=== PATIENT | female | born 1990 | race Caucasian/White ===

== ENCOUNTER 2021-03-16 17:57 | Inpatient (IN) | payer MEDICAID, SELFPAY ==
[2021-03-16] VITALS (38 sets, daily range): BP systolic 104–138; BP diastolic 66–81; PULSE 57–90; RESP 15–16; TEMP 36.8; O2SAT 91–100; BMI 23.0
--- NOTE | 2021-03-16 16:26 | US_ITS ---
WS: [id number] ULTRASOUND OB COMPLETE TECHNIQUE: Complete ultrasound. CLINICAL INFORMATION: abdominal pain COMPARISON: None. FINDINGS: Fetus is identified with breech presentation partially extending into cervix. Thinning of the cervix with dilation. Placenta is posterior. Placenta grade 1. Decreased amniotic fluid volume. cardiac activity: 0 BPM. SHANNAN 8.1 cm less than the 2.5 percentile for gestational age AGA: 25w3d JESSA by ultrasound: 06/26/2021 Estimated weight: 811 g., %. BDP: 6.2 cm = 25w0d HC: 23.7 cm = 25w5d AC: 21.2 cm = 25w5d FEMUR LENGTH: 4.6 cm = 25w0d US/US OB >= 14 weeks fetus [id number] IMPRESSION: 1. Breech fetus partially extends into the dilated cervix. No heart tone s were able to be measured. 2. AGA 25w3d with JESSA 06/26/2021. 3. Decreased amniotic fluid volume less than the 2.5 percentile for gestationa l age. 4. growth parameters less than the 10th percentile for gestational age Dr. Babb present for examination.
--- NOTE | 2021-03-16 16:32 | P.HP_ITS ---
Providers/Chief Complaint Chief Complaint: Abdominal pain HPI RETAIL AND PROMOTIONS COORDINATOR History of Present Illness Sara Soto is a 30-year-old 5 para 2-1-0-2 at around 27 weeks gestation based on her reported EDC who presents to labor and delivery with reports of vaginal bleeding and abdominal pain. She states that the abdominal pain started 1 week ago and has been on and off like contractions usually 5 times an hour and has been steadily getting worse. She states that she and her boyfriend had sex today at about noon and she had some vaginal spotting after this. After she had sex the pain got worse and because she could not deal with the pain anymore she came in for evaluation. She states that she last felt the baby move she thinks yesterday evening but is not sure. She does not think she has felt the baby move today as she has been a lot more uncomfortable. ----> She states that she did have one visit and an ultrasound in [place] in November but has not had any visits or visits with the doctor since then. She states her plan was to move to [place] and follow-up with the doctor who provided care with her other pregnancies in [facility]. She just has not done that. Review of Systems General: Reports: 10 or more systems reviewed and unremarkable except in HPI and below Const: Denies: fever(s), chills, change in appetite, change in weight, fatigue, malaise or change in sleep pattern Eyes: Denies: change in vision, eye discomfort, eye discharge or seeing flashes ENMT: Denies: throat pain, odynophagia, hoarseness, bleeding gums, ear discharge, nasal discharge or nasal congestion Card: Denies: chest pain, irregular heart rhythm, edema, swelling of feet/ankles, dyspnea on exertion or leg pain with exertion Resp: Denies: dyspnea, productive cough, wheezing or chest congestion GI: Reports: abdominal pain; Denies: nausea, vomiting, heartburn, diarrhea, constipation, change in bowel habits or hematochezia : Reports: vaginal bleeding; Denies: flank pain, dysuria, urinary frequency, urinary urgency, urinary incontinence, genital lesions, vaginal odor, vaginal discharge, dysmenorrhea, change in menstrual flow, prolapse symptoms, dyspareunia or sexual dysfunction Musc: Denies: neck pain, back pain, joint pain, joint swelling or muscle cramps Skin/Breast: Denies: rash, pruritus, breast tenderness, nipple discharge or breast mass Neuro: Denies: headache(s), numbness in extremities or seizure-like activity Psych: Denies: anxiety, depression, mood swings or change in appetite Endo: Denies: cold intolerance, flushing, hot flashes or change in body appearance Twin/Lymph: Denies: easy bruising, easy bleeding or enlarged lymph nodes All/Imm: Denies: urticaria, tongue swelling, acute wheezing or itchy eyes Medications/Allergies Allergies Allergy/AdvReac Type Severity Reaction Status Date / Time No Known Allergies Allergy Verified 03/16/21 16:35 PFS RETAIL AND PROMOTIONS COORDINATOR PFSH: Medical History (Updated 03/16/21 @ 16:36 by Zan Martinez MD) No pertinent past medical history Denies diabetes, asthma, hypertension, seizures, DVT/PE PMD: none Surgical History (Updated 03/16/21 @ 16:36 by Zan Martinez MD) Status post delivery 2019--emergency delivery for placental abruption at about 7 months--the baby did not survive. This was done in [facility]. She does not know why this happened Supplemental [facility] Information: Tobacco use: Started smoking at the age of 9 and currently smokes half a pack of cigarettes a day Alcohol use: Denies current or past tobacco use Drug use: Reports marijuana use since age of 16 and she currently uses marijuana once a week History History History 5 Term 2 Miscarriages/Ectopic 1 1 Living Children 2 Other History: X 2 SAB X 1 CD X 1 Vitals/I&O/Wt Last Vital Signs Pulse 68 03/16/21 16:06 BP 129/79 03/16/21 16:06 Physical Exam Narrative: EXAM NARRATIVE: General: well developed, in pain uncomfortable Neuro/Psych: alert, oriented to time, place and person. Heart: S1-S2 heard, regular rate and rhythm. Lungs: Clear to auscultation bilaterally. Breast: Deferred Abdomen: Soft, gravid Legs : No pedal edema no calf tenderness. Negative Homans sign Back: No CVA tenderness Skin: Normal over abdomen, vertical midline infraumbilical incision from previous surgery External genitalia: Appears normal, no lesions, Urethral meatus: Normal size, normal location Urethra: Nontender, no masses Cervix: 1 to 2, 90% -1 breech per RN, no heavy bleeding and just bloody show noted on examining finger Data : 03/16/21 16:20 03/16/21 16:20 A&P Additional A&P Information 30-year-old 5 para 2-1-1-2 at 27 weeks gestation - demise--ultrasound at bedside does not show heart tones--official ultrasound ordered -Postcoital bleeding-cannot rule out abruption--CBC CMP drug screen, coagulation profile, Covid swab done today, type and cross for 2 units just in case abruption -Vital signs stable on patient-patient is just in pain. Once we confirm diagnosis and finalize plan of care will get patient comfortable -No care -Previous delivery x1-has had 2 previous vaginal deliveries. Can try vaginal . Baby is in breech presentation. Plan of care was discussed with patient. She is willing to have trial of labor. She is upset understandably. She would like an epidural and pain medication- fentanyl. Will admit to labor and delivery to monitor and possibly augment del nemesio. Discussed with patient at this time I do not have the final read of the ultrasound and just initial images that show that baby is about 25 weeks with no heart rate noted on Doppler/M-mode. I am awaiting the final read. Discussed no obvious placental abnormalities but I cannot rule out placental abruption at this time. Discussed possibility of blood transfusion and patient is willing to accept blood transfusion if she needs it to save her life. Attestations Medical Necessity Statement*: needs to stay to deliver. Coding Level of Care Code Acute Circus Trainer for Yue Lozada
[2021-03-16 16:41] LABS: Basophils % 0.2 %; Eosinophils # 0.1 10^3/uL (0.0-0.8); Eosinophils % 0.4 %; Hematocrit 34.2 % (37.0-47.0); Hemoglobin 11.7 g/dL (11.5-15.3); Lymphocytes # 3.6 10^3/uL (0.8-4.8); Lymphocytes % 27.8 %; Mean Corpuscular HGB Conc 34.2 g/dL (30.0-36.0); Mean Corpuscular Hemoglobin 32.6 pg (28.0-34.0); Mean Corpuscular Volume 95.3 fl (81-99); Monocytes # 0.5 10^3/uL (0.2-0.9); Neutrophils % 66.7 %; Nucleated Red Blood Cells % 0 %; Platelet Count 153 10^3/cmm (130-400); Red Blood Count 3.59 10^6/uL (4.1-5.3); Red Cell Distribution Width 14.9 % (12.1-15.1); White Blood Count 13.1 10^3/uL (4.0-10.0)
[2021-03-16 16:53] LABS: Fibrinogen 215 mg/dL (174-498); Partial Thromboplastin Time 33.3 SECONDS (23.9-36.7)
[2021-03-16 16:58] LABS: Platelet Count 153 10^3/cmm (130-400)
[2021-03-16 17:05] LABS: Alanine Aminotransferase 26 U/L (0-33); Albumin Level 3.5 g/dL (3.5-5.2); Alkaline Phosphatase 122 IU/L (35-105); Anion Gap 12.8 (5-19); Aspartate Amino Transferase 28 U/L (0-32); Blood Urea Nitrogen 6 mg/dL (6-20); Calcium 8.4 mg/dL (8.5-10.5); Carbon Dioxide 25 mmol/L (22-29); Chloride 106 mmol/L (98-107); Globulin 2.5 g/dL (1.3-4.6); Glucose 82 mg/dL (65-115); Osmolality Calculated 287 mOsm/kg (285-295); Potassium 3.8 mmol/L (3.5-5.1); Sodium 140 mmol/L (136-145); Total Bilirubin 0.2 mg/dL (0.15-1.2)
[2021-03-16 17:20] LABS: Urine Appearance Clear (CLEAR); Urine Color Yellow (Yellow)
[2021-03-16 17:21] LABS: Bilirubin Urine Neg (Negative); Blood Urine 3+ (Negative); Glucose Urine UA Norm (Normal); Ketones Urine Negative (Negative); Leukocyte Esterase Urine Negative (Negative); Nitrate Urine Negative (Negative); Protein Urine Neg (Negative); Specific Gravity, Urine 1.015 (1.005-1.030); Urobilinogen Urine 4 mg/dL (Negative); pH Urine 6.5 (5-7)
[2021-03-16] MEDS: lactated ringers 1,000 ML 999 ML IV ×2 (17:21→17:35)
[2021-03-16 17:22] LABS: Add Urine Culture? No; Bacteria Urine TRACE /hpf; RBC Urine RARE /hpf (0-2); Squamous Epithelial Cell Urine 0-4 /hpf (0-5); WBC Urine RARE /hpf (0-5)
[2021-03-16] MEDS: fentaNYL 50 mcg/mL INJ 2mL 25 MCG IVP (17:22)
[2021-03-16 17:25] LABS: SARS Covid-2 Antigen Negative (Negative)
--- NOTE | 2021-03-16 17:36 | P.ANESASSM_ITS ---
Pre-Anesthetic Assessment Pre-Anesthetic Assessment: Height/Weight: Pulse Resp BP Pulse Ox 74 16 112/72 98 03/16/21 17:21 03/16/21 17:22 03/16/21 17:21 03/16/21 17:22 Preop Diagnosis: demise Proposed Procedure: epidural Was Beta Blaine taken within 24 hours: N/A Was Clonidine taken within 24 hours: N/A Social: Social History: Tobacco Exam: Pre-Anes Outpt Exam: alert, oriented x 3, clear to auscultation bilaterally and regular rate & rhythm Airway: Submandibular: WNL Cervical ROM: WNL MP: 2 Pulmonary: Pulmonary: None reported CV/HEM: CV/HEM: None reported : : None reported Hepatic: Hepatic: None reported GI: GI: None reported Metabolic: Metabolic: None reported Musc/skel: Musc/skel: None reported Neuropsych: Neuropsych: Anxiety, Bipolar and Depression Anesthetic Plan: ASA status: 2 Anesthesia: Regional (specify below) Risk of > 500 ml blood loss (7ml/kg in children): No Meds/Allergies Current Medications: Current Medications Generic Name Dose Route Start Last Admin Trade Name Freq PRN Reason Stop Dose Admin Lactated Ringer's 1,000 mls @ 999 m ls/hr 03/16/21 16:13 03/16/21 17:21 Lactated Ringers IV 999 mls/hr .Q1H1M PRN Administration BLEEDING PFSH Anesthesia PFSH: Medical History (Updated 03/16/21 @ 16:36 by Zan Martinez MD) No pertinent past medical history Denies diabetes, asthma, hypertension, seizures, DVT/PE PMD: none Surgical History (Updated 03/16/21 @ 16:36 by Zan Martinez MD) Status post delivery 2019--emergency delivery for placental abruption at about 7 m [facility]--the baby did not survive. This was done in [facility]. She does not know why this happened Supplemental PFS Information: Tobacco use: Started smoking at the age of 9 and currently smokes half a pack of cigarettes a day Alcohol use: Denies current or past tobacco use Drug use: Reports marijuana use since age of 16 and she currently uses marijuana once a week Data Anesthesia CBC & Chem 7: 03/16/21 16:20 10/08/21 16:20 Other Labs: Laboratory Results - last 48 hr 03/16/21 03/16/21 03/16/21 16:10 16:20 16:20 WBC 13.1 H RBC 3.59 L Hgb 11.7 Hct 34.2 L MCV 95.3 MCH 32.6 MCHC 34.2 RDW 14.9 Plt Count 153 MPV 12.0 H Neut % (Auto) 66.7 Lymph % (Auto) 27.8 [place] % (Auto) 4.0 Eos % (Auto) 0.4 Baso % (Auto) 0.2 Neut # (Auto) 8.70 H Lymph # (Auto) 3.6 [place] # (Auto) 0.5 Eos # (Auto) 0.1 Baso # (Auto) 0.0 Nucleated RBC % (auto) 0 Nucleated RBCs # 0.0 PT INR APTT Fibrinogen Sodium 140 Potassium 3.8 Chloride 106 Carbon Dioxide 25 Anion Gap 12.8 BUN 6 Creatinine 0.3 L GFR Calculation 263.0 H Glucose 82 Calculated Osmolality 287 Calcium 8.4 L Total Bilirubin 0.2 AST 28 ALT 26 Alkaline Phosphatase 122 H Total Protein 6.0 L Albumin 3.5 Globulin 2.5 Urine Color Yellow Urine Appearance Clear Urine pH 6.5 Ur Specific [place] 1.015 Urine Protein Neg Urine Glucose (UA) Norm Urine Ketones Negative Urine Blood 3+ H Urine Nitrate Negative Urine Bilirubin Neg Urine Urobilinogen 4 H Ur Leukocyte Esterase Negative Urine RBC Rare Urine WBC Rare Ur Squamous Epith Cells 0-4 H Amorphous Sediment Not Reportable Urine Bacteria Trace Nasal/Oral COVID-19 PCR SARS-CoV-2 Ag (Rapid) Blood Type Rho(D) Type 03/16/21 03/16/21 03/16/21 16:20 16:20 16:45 WBC RBC Hgb Hct MCV MCH MCHC RDW Plt Count 153 MPV Neut % (Auto) Lymph % (Auto) [place] % (Auto) Eos % (Auto) Baso % (Auto) Neut # (Auto) Lymph # (Auto) [place] # (Auto) Eos # (Auto) Baso # (Auto) Nucleated RBC % (auto) Nucleated RBCs # PT 12.50 INR 0.90 APTT 33.3 Fibrinogen 215 Sodium Potassium Chloride Carbon Dioxide Anion Gap BUN Creatinine GFR Calculation Glucose Calculated Osmolality Calcium Total Bilirubin AST ALT Alkaline Phosphatase Total Protein Albumin Globulin Urine Color Urine Appearance Urine pH Ur Specific [place] Urine Protein Urine Glucose (UA) Urine Ketones Urine Blood Urine Nitrate Urine Bilirubin Urine Urobilinogen Ur Leukocyte Esterase Urine RBC Urine WBC Ur Squamous Epith Cells Amorphous Sediment Urine Bacteria Nasal/Oral COVID-19 PCR Cancelled SARS-CoV-2 Ag (Rapid) Blood Type O Positive Rho(D) Type Positive 03/16/21 16:45 WBC RBC Hgb Hct MCV MCH MCHC RDW Plt Count MPV Neut % (Auto) Lymph % (Auto) [place] % (Auto) Eos % (Auto) Baso % (Auto) Neut # (Auto) Lymph # (Auto) [place] # (Auto) Eos # (Auto) Baso # (Auto) Nucleated RBC % (auto) Nucleated RBCs # PT INR APTT Fibrinogen Sodium Potassium Chloride Carbon Dioxide Anion Gap BUN Creatinine GFR Calculation Glucose Calculated Osmolality Calcium Total Bilirubin AST ALT Alkaline Phosphatase Total Protein Albumin Globulin Urine Color Urine Appearance Urine pH Ur Specific [place] Urine Protein Urine Glucose (UA) Urine Ketones Urine Blood Urine Nitrate Urine Bilirubin Urine Urobilinogen Ur Leukocyte Esterase Urine RBC Urine WBC Ur Squamous Epith Cells Amorphous Sediment Urine Bacteria Nasal/Oral COVID-19 PCR SARS-CoV-2 Ag (Rapid) Negative Blood Type Rho(D) Type Cardiac Studies: No Data to Display
--- NOTE | 2021-03-16 18:06 | ANES.PROC ---
Anesthesia Procedures Procedure/Date: 03/16/21 epidural Procedure Narrative: epidural complete, bolus given, epidural pump initiated with OUTBOARD MOTORBOAT RIGGER education given, vitals taken during procedure using OBIX system and satisfactory throughout, patient admits to decrease pain, report of procedure to OB RN Epidural: Time Out Performed: Yes Consents Signed: Procedure Consent Consent: requested by attending/covering physician, from patient, risks and benefits reviewed and patient agrees to proceed Lumbar Level: L3-L4 Epidural position: sitting Epidural procedure: sterile prep of area, 1% lidocaine to numb the area (3 mL), 18 g needle, negative for paresthesia passed, neg for paresthesia, test dose given, 1.5% xylocaine 1:200k epi (5 mL), 0.2% Ropivacaine bolus ml (5 mL), placed PCEA, no systemic response, sterile dressing applied, L.U.D. no apparent complications and 0.2% Ropiavacaine @ mls/hr (13 mL/hr)
[2021-03-16] MEDS: oxytocin 30 UNIT/500 ML BAG 600 UNIT IV (18:52)
--- NOTE | 2021-03-16 19:09 | PM.DELIVERY ---
Delivery Note: Date of delivery: March 16, 2021 Pre-delivery diagnoses: iup at 27 weeks, demise Post-delivery diagnoses: same-delivered Procedure: Op report anesthesia: Epidural Delivering Physician: nilay Estimated blood loss (mL): 5 Findings: male in the linda breech presentation Pre-Delivery Course: The patient presented to labor and delivery with complaints of severe abdominal pain. There were no heart tones found. An ultrasound confirmed demise. The patient was admitted for delivery. She received an epidural for pain management Delivery: The patient received the epidural. She was patria down and there was a presenting breech on the perineum. I arrived and the patient began pushing. The fetus was in the linda breech presentation en rosemarie. Support for the fetus was provided with a towel. The patient was encouraged to push. The anterior cervix was still present and the head became entrapped. She was placed in the knee/chest position and continued to push. The fetus delivered spontaneously in the linda breech presentation with the aftercoming head in the OA position. inspection revealed no perineal lacerations. EBL 5 ml. The mother didn't desire to see the baby and he was taken from the room. The mother was stable post delivery. Coding Level of Care Code Acute Skilled Nursing Facility Counselor for Yue Lozada
--- NOTE | 2021-03-16 19:21 | P.DS_ITS ---
Discharge Providers Date of Admission: 03/16/21 17:57 Date of Discharge: March 16, 2021 Attending Provider at Admission: Zan Martinez MD Attending Provider at Discharge: Zan Martinez MD Diagnoses at Discharge Discharge Diagnosis (1) state: Status: Acute Reason for Visit Reason for Visit: Abdominal pain Hospital Course Hospital Course The patient was admitted with a demise. She had spontaneous delivery of a demise. She did well and requested discharge soon after delivery. Discharge Data Data Completed and Pending: Completed Studies During Hospitalization Category Date Time Status US OB >= 14 weeks fetus [id number] Stat Ultrasound 03/16/21 16:26 Completed Pending at discharge Category Date Time Status Chlamydia / Gonor mani Panel Stat Lab 03/16/21 16:10 Received Drug Screen, Urin e Stat Lab 03/16/21 16:42 Uncollected Hemagram Timed Lab 03/17/21 07:20 Uncollected [facility] SARS-CoV-2 RNA Routine Lab 03/16/21 16:45 Received Labs from last 24 hours 03/16/21 03/16/21 03/16/21 16:45 16:45 16:45 WBC RBC Hgb Hct MCV MCH MCHC RDW Plt Count MPV Neut % (Auto) Lymph % (Auto) [place] % (Auto) Eos % (Auto) Baso % (Auto) Neut # (Auto) Lymph # (Auto) [place] # (Auto) Eos # (Auto) Baso # (Auto) Nucleated RBC % (a uto) Nucleated RBCs # PT INR APTT Fibrinogen Sodium Potassium Chloride Carbon Dioxide Anion Gap BUN Creatinine GFR Calculation Glucose Calculated Osmolal ity Calcium Total Bilirubin AST ALT Alkaline Phosphata se Total Protein Albumin Globulin Urine Color Urine Appearance Urine pH Ur Specific Gravit y Urine Protein Urine Glucose (UA) Urine Ketones Urine Blood Urine Nitrate Urine Bilirubin Urine Urobilinogen Ur Leukocyte Dorina ase Urine RBC Urine WBC Ur Squamous Epith Cells Amorphous Sediment Urine Bacteria Nasal/Oral COVID-1 9 PCR Cancelled SARS-CoV-2 RNA (RT -PCR) Pending SARS-CoV-2 Ag (Rap id) Negative Blood Type Rho(D) Type 03/16/21 03/16/21 03/16/21 16:20 16:20 16:20 WBC RBC Hgb Hct MCV MCH MCHC RDW Plt Count 153 MPV Neut % (Auto) Lymph % (Auto) [place] % (Auto) Eos % (Auto) Baso % (Auto) Neut # (Auto) Lymph # (Auto) [place] # (Auto) Eos # (Auto) Baso # (Auto) Nucleated RBC % (a uto) Nucleated RBCs # PT 12.50 INR 0.90 APTT 33.3 Fibrinogen 215 Sodium 140 Potassium 3.8 Chloride 106 Carbon Dioxide 25 Anion Gap 12.8 BUN 6 Creatinine 0.3 L GFR Calculation 263.0 H Glucose 82 Calculated Osmolal ity 287 Calcium 8.4 L Total Bilirubin 0.2 AST 28 ALT 26 Alkaline Phosphata se 122 H Total Protein 6.0 L Albumin 3.5 Globulin 2.5 Urine Color Urine Appearance Urine pH Ur Specific Gravit y Urine Protein Urine Glucose (UA) Urine Ketones Urine Blood Urine Nitrate Urine Bilirubin Urine Urobilinogen Ur Leukocyte Dorina ase Urine RBC Urine WBC Ur Squamous Epith Cells Amorphous Sediment Urine Bacteria Nasal/Oral COVID-1 9 PCR SARS-CoV-2 RNA (RT -PCR) SARS-CoV-2 Ag (Rap id) Blood Type O Positive Rho(D) Type Positive 03/16/21 03/16/21 16:20 16:10 WBC 13.1 H RBC 3.59 L Hgb 11.7 Hct 34.2 L MCV 95.3 MCH 32.6 MCHC 34.2 RDW 14.9 Plt Count 153 MPV 12.0 H Neut % (Auto) 66.7 Lymph % (Auto) 27.8 [place] % (Auto) 4.0 Eos % (Auto) 0.4 Baso % (Auto) 0.2 Neut # (Auto) 8.70 H Lymph # (Auto) 3.6 [place] # (Auto) 0.5 Eos # (Auto) 0.1 Baso # (Auto) 0.0 Nucleated RBC % (a uto) 0 Nucleated RBCs # 0.0 PT INR APTT Fibrinogen Sodium Potassium Chloride Carbon Dioxide Anion Gap BUN Creatinine GFR Calculation Glucose Calculated Osmolal ity Calcium Total Bilirubin AST ALT Alkaline Phosphata se Total Protein Albumin Globulin Urine Color Yellow Urine Appearance Clear Urine pH 6.5 Ur Specific Gravit y 1.015 Urine Protein Neg Urine Glucose (UA) Norm Urine Ketones Negative Urine Blood 3+ H Urine Nitrate Negative Urine Bilirubin Neg Urine Urobilinogen 4 H Ur Leukocyte Dorina ase Negative Urine RBC Rare Urine WBC Rare Ur Squamous Epith Cells 0-4 H Amorphous Sediment Not Reportable Urine Bacteria Trace Nasal/Oral COVID-1 9 PCR SARS-CoV-2 RNA (RT -PCR) SARS-CoV-2 Ag (Rap id) Blood Type Rho(D) Type Vitals: Last Vital Signs Pulse 57 L 03/16/21 18:37 Resp 16 03/16/21 17:22 BP 126/78 03/16/21 18:37 Pulse Ox 96 03/16/21 18:16 Discharge Plan Discharge Patient Disposition: Home Condition: Stable Discharge Orders: Discharge Order (Routine); Ordered 03/16/21 Ordered By: Melissa Mondragon Patient Instructions: Opioid Safety Discharge Attestations Time Spent in Discharge Care*: less than 30 min Quality Metrics Clinical Quality Measures During this hospital stay, did patient experience: None Coding Level of Care Code Acute [facility] DC note Diagnoses state Z39.2
[2021-03-16 20:33] LABS: Amphetamines Screen Urine Positive (Negative); Barbiturates Screen Urine Negative (Negative); Benzodiazepines Screen Urine Negative (Negative); Cocaine Screen Urine Negative (Negative); Opiate Screen Urine Negative (Negative); PCP Screen Urine Negative (Negative); THC Screen Urine Positive (Negative)
--- NOTE | 2021-03-17 14:36 | ANE.PACU2 ---
Inpatient post-anesthesia follow up: Airway intact: Yes Vital signs: Temperature 98.2 F Pulse Rate 78 Respiratory Rate 15 Blood Pressure 104/68 Pulse Oximetry 96 Oxygen Delivery Me thod Room Air Oxygen Flow Rate Fraction of Inspir ed Oxygen Hydration adequate: Yes Nausea and vomiting: No Pain level: 2 Mental status: Baseline
[2021-03-18 18:06] LABS: Quest SARS-CoV-2 RNA DETECTED (NOT DETECTED)
== END 2021-03-16 22:55 | disposition home or self-care (01) | DRG 805 ==
LOC: OPOB 17:58 → OBGYN 17:58
PROVIDERS: Admitting Provider Obstetrics & Gynecology; Visit Provider Obstetrics & Gynecology
DX: O36.4XX0 Maternal care for intrauterine death, not applicable or unspecified (principal); O60.12X0 Preterm labor second trimester with preterm delivery second trimester, not applicable or unspecified; Z37.1 Single stillbirth; O99.324 Drug use complicating childbirth; Z3A.27 27 weeks gestation of pregnancy; F12.90 Cannabis use, unspecified, uncomplicated; O32.1XX0 Maternal care for breech presentation, not applicable or unspecified
CPT/HCPCS: 36415; 59409; 76805; 80053; 80306; 81001; 85025; 85049; 85384; 85610; 85730; 86900; 87070; 87075; 87077; 87176; 87205; 87426; 87491; 87591; 87635; 88305; 99211; J2795; J3010

== ENCOUNTER 2024-11-19 17:33 | Emergency (ER) | payer MEDICAID, SELFPAY ==
[2024-11-19 17:38] VITALS: BP 150/90; PULSE 104; RESP 17; TEMP 36.4; O2SAT 95; BMI 34.3
--- NOTE | 2024-11-19 17:38 | ECG_ITS ---
[facility]: [facility] Pat Name: Sara Soto Department: Room: Gender: Female Game Tester: TASHA: 1990 Requested By: Sierra Casas Order Number: [id number] Philippe MD: Letty Joseph M.D. Measurements Intervals [place] Rate: 80 P: 116 SD: 157 QRS: 100 QRSD: 105 T: 134 QT: 382 QTc: 442 Interpretive Statements SINUS RHYTHM ARM LEADS REVERSED [INVERTED P AND QRS IN I] Compared to ECG 05/21/2017 18:08:30 No significant changes Electronically Signed On 11-20-2024 14:33:20 CDT by Letty Joseph M.D. [email or web address]
--- NOTE | 2024-11-19 17:44 | PC.NURSE ---
DR. CHAVARRIA NOTIFIED OF SUICIDE RISK ASSESSMENT ANSWERS BY PT.
[2024-11-19 17:54] LABS: Basophils % 0.3 %; Eosinophils % 0.3 %; Hematocrit 39.2 % (36-47); Lymphocytes # 2.4 10^3/uL (0.8-4.8); Lymphocytes % 20.8 %; Mean Corpuscular HGB Conc 32.7 g/dL (30-55); Mean Corpuscular Hemoglobin 27.8 pg (27-33); Mean Platelet Volume 10.2 fL (7.4-10.4); Monocytes # 0.6 10^3/uL (0.2-0.9); Monocytes % 5.2 %; Neutrophils # 8.42 10^3/uL (1.8-7.7); Neutrophils % 73.1 %; Nucleated Red Blood Cells % 0 %; Platelet Count 391 10^3/cmm (157-399); Red Blood Count 4.61 10^6/uL (3.85-5.65); Red Cell Distribution Width 15.5 % (12.1-15.1)
[2024-11-19 17:58] LABS: HCG Qualitative Urine. Negative (Negative)
--- NOTE | 2024-11-19 18:10 | ED_ITS ---
HPI - Medical Clearance 2 General: Chief complaint: Medical Clearance Stated complaint: fit for confinment Time Seen by Provider: 11/19/24 17:37 History of Present Illness: 34-year-old female who presents emergenc y room with police for a fit for confinement evaluation. She is a little bit tearful. She does say she thinks of suicide sometimes but she is not currently actively suicidal. Related Data Previous Rx's ?Medication ?Instructions ?Recorded cephalexin 500 mg capsule 500 mg PO BID 5 days #10 cap s 11/19/24 Allergies Allergy/AdvReac Type Severity Reaction Status Date / Time No Known Allergies Allergy Verified 02/18/24 11:41 Review of Systems 2 Narrative: Constitutional symptoms: Negative except as documented in HPI. Skin symptoms: Negative except as documented in HPI. Eye symptoms: Negative except as documented in HPI. ENMT symptoms: Negative except as documented in HPI. Respiratory symptoms: Negative except as documented in HPI. Cardiovascular symptoms: Negative except as documented in HPI. Gastrointestinal symptoms: Negative except as documented in HPI. Genitourinary symptoms: Negative except as documented in HPI. Musculoskeletal symptoms: Negative except as documented in HPI. Neurologic symptoms: Negative except as documented in HPI. Psychiatric symptoms: Negative except as documented in HPI. Endocrine symptoms: Negative except as documented in HPI. PFSH ED 2 PFSH: Medical History No pertinent past medical history Denies diabetes, asthma, hypertension, seizures, DVT/PE PMD: none Surgical History Status post delivery 2019--emergency delivery for placental abruption at about 7 months--the baby did not survive. This was done in [facility]. She does not know why this happened Social History Smoking and tobacco/nicotine status: current every day tobacco/nicotine user Physical Exam 2 Narrative: EXAM NARRATIVE: General: Alert, no acute distress. Skin: Warm, dry. Head: Normocephalic, atraumatic. Neck: Supple, trachea midline. Eye: Extraocular movements are intact. Ears, nose, mouth and throat: mucosa moist. Cardiovascular: Regular, Normal peripheral perfusion. Respiratory: Lungs are clear to auscultation, respirations are non-labored, breath sounds are equal, Symmetrical chest wall expansion. Gastrointestinal: Soft, Nontender, Non distended Musculoskeletal: Normal ROM, no deformity. Neurological: Alert and oriented, No focal neurological deficit observed. Psychiatric: Cooperative, appropriate mood & affect. Course 2 Vital Signs: Vital signs: Vital Signs Temperature 97.5 F L 11/19/24 17:38 Pulse Rate 91 11/19/24 20:36 Respiratory Rate 16 11/19/24 20:36 Blood Pressure 118/80 11/19/24 20:36 Pulse Oximetry 98 11/19/24 20:36 Oxygen Delivery Me thod Room Air 11/19/24 17:38 MDM - Medical Clearance Medical Decision Making Medical decision making: Differential diagnosis including but not limited to and based on the above HPI, review of systems and physical exam: Basic workup for medical clearance was ordered. Lab work. Orders placed to evaluate differential diagnosis based on the above differential, HPI and physical exam Lab Review: Laboratory results were reviewed and interpreted by myself the emergency room physician. Mild leukocytosis. No anemia. No renal failure. Blood alcohol level is elevated at 167. Salicylate and Tylenol are negative. Patient is not . Patient's urine drug screen is positive for amphetamines and marijuana. Patient does have mild urinary tract infection. I reviewed the patient's medical record. Reexamination: Patient remained stable. No increased work of breathing. No altered mental status. No focal motor deficits. Assessment and plan: Alcohol intoxication Medical clearance Urinary tract infection ?First dose Keflex in the emergency room. - Discharged home - Discussed plan with patient. Answered any questions. - Evaluation and treatment of this problem were appropriate in the emergency setting. Lab Data 11/19/24 17:48 11/19/24 17:48 Laboratory Results WBC 11.50 10^3/uL (3.29-11.43) H 11/19/24 17:48 RBC 4.61 10^6/uL (3.85-5.65) 11/19/24 17:48 Hgb 12.80 g/dL (11.27-16.99) 11/19/24 17:48 Hct 39.2 % (36-47) 11/19/24 17:48 MCV 85.0 fl (85-98) 11/19/24 17:48 MCH 27.8 pg (27-33) 11/19/24 17:48 MCHC 32.7 g/dL (30-55) 11/19/24 17:48 RDW 15.5 % (12.1-15.1) H 11/19/24 17:48 Plt Count 391 10^3/cmm (157-399) 11/19/24 17:48 MPV 10.2 fL (7.4-10.4) 11/19/24 17:48 Neut % (Auto) 73.1 % 11/19/24 17:48 Lymph % (Auto) 20.8 % 11/19/24 17:48 Coleman % (Auto) 5.2 % 11/19/24 17:48 Eos % (Auto) 0.3 % 11/19/24 17:48 Baso % (Auto) 0.3 % 11/19/24 17:48 Neut # (Auto) 8.42 10^3/uL (1.8-7.7) H 11/19/24 17:48 Lymph # (Auto) 2.4 10^3/uL (0.8-4.8) 11/19/24 17:48 Coleman # (Auto) 0.6 10^3/uL (0.2-0.9) 11/19/24 17:48 Eos # (Auto) 0.0 10^3/uL (0.0-0.8) 11/19/24 17:48 Baso # (Auto) 0.0 10^3/uL (0.0-0.1) 11/19/24 17:48 Nucleated RBC % (auto) 0 % 11/19/24 17:48 Nucleated RBCs # 0.0 /100WBC 11/19/24 17:48 Sodium 140 mmol/L (136-145) 11/19/24 17:48 Potassium 3.4 mmol/L (3.5-5.1) L 11/19/24 17:48 Chloride 106 mmol/L (98-107) 11/19/24 17:48 Carbon Dioxide 19 mmol/L (22-29) L 11/19/24 17:48 Anion Gap 18.4 (5-19) 11/19/24 17:48 BUN 10 mg/dL (6-20) 11/19/24 17:48 Creatinine 0.6 mg/dL (0.5-0.9) 11/19/24 17:48 GFR Calculation 115.1 mL/min (90-130) 11/19/24 17:48 Glucose 116 mg/dL (65-115) H 11/19/24 17:48 Calculated Osmolality 290 mOsm/kg (285-295) 11/19/24 17:48 Calcium 8.6 mg/dL (8.5-10.5) 11/19/24 17:48 Total Bilirubin 0.2 mg/dL (0.15-1.2) 11/19/24 17:48 AST 26 U/L (0-32) 11/19/24 17:48 ALT 14 U/L (0-33) 11/19/24 17:48 Alkaline Phosphatase 105 U/L (35-105) 11/19/24 17:48 Total Protein 7.3 g/dL (6.6-8.7) 11/19/24 17:48 Albumin 4.3 g/dL (3.5-5.2) 11/19/24 17:48 Globulin 3.0 g/dL (1.3-4.6) 11/19/24 17:48 HCG, Qual Negative (Negative) 11/19/24 17:51 Urine Color Red (Yellow) A 11/19/24 17:51 Urine Appearance Cloudy (CLEAR) A 11/19/24 17:51 Urine pH 5.5 (5-7) 11/19/24 17:51 Ur Specific [place] 1.023 (1.005-1.030) 11/19/24 17:51 Urine Protein 3+ (Negative) A 11/19/24 17:51 Urine Glucose (UA) Trace (Normal) H 11/19/24 17:51 Urine Ketones Negative (Negative) 11/19/24 17:51 Urine Blood 3+ (Negative) A 11/19/24 17:51 Urine Nitrate Negative (Negative) 11/19/24 17:51 Urine Bilirubin Negative (Negative) 11/19/24 17:51 Urine Urobilinogen 0.2 mg/dL (Negative) 11/19/24 17:51 Ur Leukocyte Esterase 1+ (Negative) A 11/19/24 17:51 Urine RBC >100 /hpf (0-2) H 11/19/24 17:51 Urine WBC 11-20 /hpf (0-5) H 11/19/24 17:51 Ur Squamous Epith Cells 11-20 /hpf (0-5) H 11/19/24 17:51 Amorphous Sediment Not Reportable 11/19/24 17:51 Urine Bacteria 1+ /hpf (NONE) H 11/19/24 17:51 Hyaline Casts 40.13 /lpf 11/19/24 17:51 Salicylates < 0.3 mg/dL (3-10) L 11/19/24 17:48 Urine Opiates Screen Negative ng/mL (Negative) 11/19/24 17:51 Acetaminophen < 5.0 ug/mL (10-30) L 11/19/24 17:48 Ur Barbiturates Screen Negative ng/mL (Negative) 11/19/24 17:51 Ur Phencyclidine Scrn Negative ng/mL (Negative) 11/19/24 17:51 Ur Amphetamines Screen Positive ng/mL (Negative) H 11/19/24 17:51 U Benzodiazepines Scrn Negative ng/mL (Negative) 11/19/24 17:51 Urine Cocaine Screen Negative ng/mL (Negative) 11/19/24 17:51 U Marijuana (THC) Screen Positive ng/mL (Negative) H 11/19/24 17:51 Ethyl Alcohol 167 mg/dL (0-10) H 11/19/24 17:48 All radiology interpretation(s) finalized by discharge Discharge Plan Discharge Patient Disposition: Home Clinical Impression: Alcohol intoxication, Medical clearance for incarceration, UTI (urinary tract infection) Condition: Stable Prescriptions: New cephalexin 500 mg capsule 500 mg PO BID 5 Days Qty: 10 0RF Discharge Orders: Discharge ED (Routine); Ordered 11/19/24 Ordered By: Sierra Vinson Discharge Diet: Usual diet Discharge Activity: Increase activity as tolerated Patient Instructions: Opioid Safety, Pain Management Activity Restrictions/Additional Instructions: Thank you for choosing [facility] for your healthcare needs today. You have been screened and evaluated and felt safe for discharge. Health conditions do change or evolve sometimes and as such it is important that you follow up with your Primary Doctor to be re checked, 3-5 days is a general good time frame for follow up. You are always welcome to return to the ED for re assessment if your symptoms are worsening or you have new concerns Print Language: Lithuanian Coding Level of Care Code ED Windows V[employer] Administrator for Yue Lozada
[2024-11-19 18:14] LABS: Albumin Level 4.3 g/dL (3.5-5.2); Alcohol Level 167 mg/dL (0-10); Alkaline Phosphatase 105 U/L (35-105); Anion Gap 18.4 (5-19); Aspartate Amino Transferase 26 U/L (0-32); Blood Urea Nitrogen 10 mg/dL (6-20); Calcium 8.6 mg/dL (8.5-10.5); Carbon Dioxide 19 mmol/L (22-29); Chloride 106 mmol/L (98-107); Creatinine Clr Calc Pharmacy 162.3436; Glomerular Filtration Rate 115.1 mL/min (90-130); Glucose 116 mg/dL (65-115); Osmolality Calculated 290 mOsm/kg (285-295); Potassium 3.4 mmol/L (3.5-5.1); Sodium 140 mmol/L (136-145); Total Bilirubin 0.2 mg/dL (0.15-1.2); Total Protein 7.3 g/dL (6.6-8.7)
[2024-11-19 18:21] LABS: Acetaminophen < 5.0 ug/mL (10-30); Salicylate < 0.3 mg/dL (3-10)
[2024-11-19 18:22] LABS: Alanine Aminotransferase 14 U/L (0-33)
[2024-11-19 19:07] LABS: Bilirubin Urine Negative (Negative); Blood Urine 3+ (Negative); Glucose Urine UA Trace (Normal); Ketones Urine Negative (Negative); Leukocyte Esterase Urine 1+ (Negative); Nitrate Urine Negative (Negative); Protein Urine 3+ (Negative); Specific Gravity, Urine 1.023 (1.005-1.030); Urine Appearance Cloudy (CLEAR); Urobilinogen Urine 0.2 mg/dL (Negative); pH Urine 5.5 (5-7)
[2024-11-19 19:12] LABS: Add Urine Microscopic? YES; Bacteria Urine 1+ /hpf; Hyaline Casts Urine 40.13 /lpf; RBC Urine >100 /hpf (0-2)
[2024-11-19 19:15] LABS: Amphetamines Screen Urine Positive (Negative); Barbiturates Screen Urine Negative (Negative); Benzodiazepines Screen Urine Negative (Negative); Cocaine Screen Urine Negative (Negative); Opiate Screen Urine Negative (Negative); PCP Screen Urine Negative (Negative); THC Screen Urine Positive (Negative)
[2024-11-19 20:10] LABS: Urine Color Red (Yellow)
[2024-11-19 20:11] LABS: UA Slide Review UA Slide Review Perf
[2024-11-19 20:12] LABS: Add Urine Culture? Yes
[2024-11-19 20:36] VITALS: BP 118/80; PULSE 91; RESP 16; O2SAT 98
[2024-11-19 22:28] LABS: Thyroid Stimulating Hormone 1.31 uIU/mL (0.27-4.20)
== END 2024-11-19 20:39 | disposition home or self-care (01) ==
PROVIDERS: Emergency Provider Emergency Medicine
DX: Z02.89 Encounter for other administrative examinations (principal); F10.129 Alcohol abuse with intoxication, unspecified; N39.0 Urinary tract infection, site not specified; Y90.6 Blood alcohol level of 120-199 mg/100 ml
CPT/HCPCS: 36415; 80053; 80306; 80307; 81001; 81025; 84443; 85025; 87086; 93005; 99284

== ENCOUNTER 2025-05-31 04:34 | Emergency (ER) | payer MEDICAID, SELFPAY ==
[2025-05-31] VITALS (8 sets, daily range): BP systolic 116–138; BP diastolic 77–97; PULSE 91–106; RESP 18; TEMP 36.6; O2SAT 96–99; BMI 28.8
--- OUTSIDE RECORDS SUMMARY | 2025-05-31 04:39 | XMS_ITS | Data Portability ---
Author Organization [facility] Ovi, Sandra, [facility] Address [address] [place] [address] Care Team Providers Care Acidizer Water Well Name Role Phone MOHANCYTNHIA MODI Primary Care Provider Assessment Encounter Date Assessment Date Assessment LastModified by Organization Details LastModified Time 04/02/2023 04/02/2023 Will sign a release for records from [facility]. [email or web address] Not available 04/02/2023 15:15:05 Plan of Treatment Reminders Order Date Submit Date Provider Last Modified By Organization Details Last Modified Time Details Appointments None recorded. Lab None recorded. Referral None recorded. Procedures None recorded. Surgeries None recorded. Imaging US, obstetric, 1st trimester - [id number] [address] ([facility]), [address] [place] [address], [phone], 3 14:08:54 Medication Orders None recorded. Patient TargetsNo targets recorded. Patient InstructionsNo instructions recorded. Reason for Referral None Reported. Problems Name Problem SNOMED Code Status Onset Date Resolution Date Notes Provider Name and Address Organization Details Recorded Time 00051862 Active 2022 TREBA NEUSCHWAN TERRI null, [facility] 14:36:11 Multigravida 024579427 Active 2022 TREBA NEUSCHWAN TERRI null, [facility] 14:41:13 Problem Notes None recorded. Procedures Surgical History Date Name Laterality Status Provider Name and Address Organization Details Recorded Time [facility] 14:31:49 [facility] 14:31:55 Imaging Results None recorded. Procedure Notes None recorded. Medical Equipment None Reported. Allergies No known drug allergies Medications Name Sig Start Date Stop Date Status Note LastModified by Organization Details LastModified Time buspirone 5 mg tablet TAKE 1 TABLET BY MOUTH THREE TIMES DAILY 04/02 completed Not Available Not Available Not Available azithromycin 250 mg tablet TAKE 2 TABLETS BY MOUTH ON DAY 1, AND THEN TAKE 1 TABLET BY MOUTH ONCE A DAY ON DAY 2 THROUGH DAY 5 04/02 completed Not Available Not Available Not Available metronidazol e 500 mg tablet TAKE 1 TABLET BY MOUTH THREE TIMES DAILY FOR 6 DAYS 04/02 completed Not Available Not Available Not Available ciprofloxaci n 500 mg tablet TAKE 1 TABLET BY MOUTH TWICE DAILY FOR 6 DAYS 04/02 completed Not Available Not Available Not Available buspirone 10 mg tablet TAKE 1 TABLET BY MOUTH THREE TIMES DAILY 04/02 completed Not Available Not Available Not Available sertraline 50 mg tablet TAKE 1 TABLET BY MOUTH ONCE DAILY 04/02 completed Not Available Not Available Not Available Gummies active Not Available Not Available Not Available Vitals Date Recorded Body height Body mass index (BMI) Body weight Oxygen saturation Heart rate Respiratory rate Body temperature Systolic And Diastolic Provider Name and Address Organization Details Last Updated DateTime 3 154.94 cm 27.3 kg/m2 45363.0 55848 g 99 % 88 /min 18 /min 97.9 [degF] 112/60 mm[Hg] [facility]YE [facility]URRAY [facility] 14:[facility] Social History Question Answer Notes LastModified by Organizat ion Details LastModified Time Tobacco Smoking Status Current Every Day Smoker [facility] 04/02/2023 14:31:17 What Is Your Relationship Status? Information not available 04/02/2023 How Much Tobacco Do You Smoke? 0.5 PPD Information not available 04/02/2023 Sex: Unknown Functional Status Question Answer Note LastModified by Organizat ion Details LastModified Time Do you use any illicit or recreational drugs? No Information not available 04/02/2023 What is your level of alcohol consumption? None Information not available 04/02/2023 Are you able to care for yourself independently? Yes Information not available 04/02/2023 Mental Status None recorded. Family History Relationship Description Onset Age of this Age Resolved Age Notes LastModified by Organization Details LastModified Time Maternal Grandmother Hypertensive disorder [email or web address] Not available 14:32:13 Maternal Grandmother Diabetes mellitus [email or web address] Not available 14:32:22 Maternal Grandmother Heart disease [email or web address] Not available 14:32:37 Maternal Grandmother Cerebrovascu lar accident tneuschwander Not available 04/02/2023 14:32:56 Medical History No medical history recorded. Gynecological History Statement/Question Response Date of LMP 01/21/2023 LMP Definite Sexually Active? Y Obstetrics History GPAL:G 5 P 2 1 1 2 Type Value Full Term 2 Spontaneous 1 Premature 1 Living 2 Total 5 Immunizations Vaccine Type Date Status Note Provider Nam e and Address Organization Details Recorded Time MMR 7 completed TREBA NEUBRANNDHEIDY hayes [facility] 04/02/2023 14:20:11 MMR 3 completed TREBA NEULUTHERWANDHEIDY hayes [facility] 04/02/2023 14:20:11 Tdap 7 completed TREBA NEUCHEKO hayes [facility] 04/02/2023 14:20:11 DTP 3 completed TREBA BRYCE hayes [facility] 04/02/2023 14:20:11 DTP 2 completed TREBA NEUSCHWANDER null, [facility] 04/02/2023 14:20:11 DTP 3 completed TREBA NEUSCHWANDER null, [facility] 04/02/2023 14:20:11 DTP 1 completed TREBA NEUSCHWANDER null, [facility] 04/02/2023 14:20:11 Hep B, unspecified formulation 6 completed TREBA NEUSCHWANDER null, [facility] 04/02/2023 14:20:11 Hep B, unspecified formulation 5 completed TREBA NEUSCHWANDER null, [facility] 04/02/2023 14:20:11 Hep B, unspecified formulation 5 completed TREBA NEUSCHWANDER null, [facility] 04/02/2023 14:20:11 OPV, trivalent 7 completed TREBA NEUSCHWANDER null, [facility] 04/02/2023 14:20:11 OPV, trivalent 3 completed TREBA NEUSCHWANDER null, [facility] 04/02/2023 14:20:11 OPV, trivalent 3 completed TREBA NEUSCHWANDER null, [facility] 04/02/2023 14:20:11 OPV, trivalent 1 completed TREBA NEUSCHWANDER null, [facility] 04/02/2023 14:20:11 Hib (HbOC) 3 completed TREBA NEUSCHWANDER null, [facility] 04/02/2023 14:20:11 Hib (HbOC) 2 completed TREBA NEUSCHWANDER null, [facility] 04/02/2023 14:20:11 Hib (HbOC) 3 completed TREBA NEUSCHWANDER null, [facility] 04/02/2023 14:20:11 Hib (HbOC) 1 completed TREBA NEUSCHWANDER null, [facility] 04/02/2023 14:20:11 meningococcal MCV4P 7 completed TREBA NEUSCHWANDER null, [facility] 04/02/2023 14:20:11 DTaP 7 completed TREBA NEUSCHWANDER null, [facility] 04/02/2023 14:20:11 Past Encounters Encounter ID Performer Location Encounter Start Date Encounter Closed Date Diagnosis/Indication Diagnosis SNOMED-CT Code Diagnosis ICD10 Code Diagnosis IMO Codes Diagnosis Note [id number] Cynthia Mcclain MD [facility] ([facility]) [address] [place] [phone] 04/02/2023 14:12:06 04/02/2023 19:06:11 Multigravida 991532446 Z34.81 Past pregn dmitry history of miscarriage 260213069 Z87.59 [id number] Cynthia Mcclain MD [facility] ([facility]) [address] [place] [address] 04/14/2023 11:04:06 04/14/2023 19:04:49 Health Concerns Section Related Observation LastModified by Organization Detai ls LastModified Time None Recorded Concern Status LastModified by Organization Details LastModified Time None Recorded Advance Directives Directive None Recorded Payers Insurance Date Sequence Insurance Name Policy Number Policy Ford Covered Member ID Ford Member ID Guarantor Name 10/16/2023 1 [facility] (MEDICAID HMO) Sara Yang [id number] Sara Yang 10/21/2023 [facility] (MEDICAID HMO) Sara Yang [id number] Sara Yang 10/15/2023 1 UNSPECIFIED REMIT PAYOR Sara Yang Notes Date Note Type Note Provider Name and Address Organization Details Recorded Time 04/02/2023 text/html jr ob routineRep orted by PatientHPIFor associated symptoms, patient reportsnausea,constip ation, andheadachebut reportsno abdominal pain,no cramping,no bleeding,no vaginal discharge,no vaginal/vulvar itching or irritation,no dysuria,no hematuria,no fever,no emesis,no diarrhea/loose stool,no edema,no visual changes,no dizziness, andno breathlessness.breast tendernessPt denies any alcohol or drug use. Pt smokes less that 1/2 PPD Cynthia Mcclain MD [address] [place] [address], [phone] 04/02/2023 15:27:52 OBGyn Episode Ob Episode Information Episode Created Date Number of Fetuses Patient Bloodtype Patient rh Status Prepregnancy Weight lbs Domestic Partner Domestic Partner Phone Father Name Artificial Plastic Eye Maker Status 04/02/20 23 1 Joel OPEN Fetus Data First Name Last Name Admitted to NICU Weight (g) Sex Living Outcome Pediatric Complications Fetus ID Race Codes Race Delivery Type 2706 Jessa Calculation Initial Jessa Date Initial Exam Date Initial Exam Provider Initial Ultrasound Date Last Menstrual Period Date Ultra Sound Weeks Gestation 10/16/2023 04/02/2023 04/14/2023 01/21/2023 13 Eighteen To Twenty Week Jessa Update Ultra Sound Date Fundal Height At Umbil Quickening Date Ultra Sound Latest Weeks Gestation Final Jessa Confirmed By Final Jessa Confirmed Date Final Ejssa Date Ultra Sound Latest Days Gestation 0 [email or web address] 04/21/2023 10/16/19 24 0 Pre-cristal Flowsheet Flowsheet Date 04/02/2023 Chris Score Blood Edema Fundus Height Fundus Units Glucose Ketones Leukocytes Nitrite Labor Signs Protein Cervic Dilation Cervic Effacement Cervic Station Type Weight in lbs Pre/Post Dialysis Refused Weight 144.017975734680 BP Diastolic BP Location Tested BP Systolic BP Type 60 112 sitting Fetus Heart Rate Present A 168 Present Fetus Movement Comments OBI Flowsheet Date 04/14/2023 Chris Score Blood Edema Fundus Height Fundus Units Glucose Ketones Leukocytes Nitrite Labor Signs Protein Cervic Dilation Cervic Effacement Cervic Station Type Weight in lbs Pre/Post Dialysis Refused BP Diastolic BP Location Tested BP Systolic BP Type Fetus Heart Rate Present Fetus Movement Comments Flowsheet Date 04/21/2023 Chris Score Blood Edema Fundus Height Fundus Units Glucose Ketones Leukocytes Nitrite Labor Signs Protein Cervic Dilation Cervic Effacement Cervic Station Type Weight in lbs Pre/Post Dialysis Refused BP Diastolic BP Location Tested BP Systolic BP Type Fetus Heart Rate Present Fetus Movement Comments u/s on 04/14/23 JESSA 10/16/23, E GA 13.4 Menstrual History Last Menstrual Date Menses Monthly On Bcp Conception Prior Menses Frequency Hcg Plus Date Menarche Onset Age 0801/21/2023 Genetic Screening And Infection History Question Response Note Patient's Age Will Be 35 Years Or Older At Estim ated Date of Delivery false Thalassemia (Montenegrin, Slovenian, Mediterranean, Or Background): MCV < 80 false Neural Tube Defect (Meningomyelocele, Spina Bifi da, Or Anencephaly) false Congenital Heart Defect false Down Syndrome false Rusty-Sachs (eg, Caodaism, Cajun, Latvian-Sierra Leonean) f alse Vlad Disease false Sickle Cell Disease Or Trait () false Hemophilia Or Other Blood Disorders false Muscular Dystrophy false Cystic Fibrosis false Aida's Chorea false Intellectual Disability/Autism false If Yes, Was Person Tested For Fragile X? false Other Inherited Genetic Or Chromosomal Disorder false Maternal Metabolic Disorder (eg, Type 1 Diabetes , PKU) false Patient Or Baby's Father Had A Child With Defects Not Listed Above false Recurrent Loss, Or A Stillbirth true pt Medications (including Suppl ements, Vitamins, Herbs, OTC Drugs), Illicit/Recreational Drugs, Alcohol false If Yes, Agent(s) And Strength/Dosage false Any Other Genetic History false Live With Someone With TB Or Exposed To TB false Patient Or Partner Has History Of Genital Herpes false Rash Or Viral Illness Since Last Menstrual Perio d false History Of STD, Gonorrhea, Chlamydia, HPV, Syphi lis false Other Infection History false History of HIV false History of Hepatitis false Prior GBS-infected child false Hemoglobinopathy Or Carrier false Other Structural Defect false Recent Travel History Outside of Country false Mental Retardation/Autism false Delivery Information Delivery Date Delivery Type Labor Anesthesia Weeks Gestation Incision Type Labor Labor Length Hrs Delivered By Post Complications Tubal Sterilization Discharge Date Comments Discharge Information Feeding Method Contraceptive Method Maternal HG B and HCT Levels Ob Episode Information Episode Created Date Number of Fetuses Patient Bloodtype Patient rh Status Prepregnancy Weight lbs Domestic Partner Domestic Partner Phone Father Name Artificial Plastic Eye Maker Status 04/02/20 1 CLOSED Fetus Data First Name Last Name Admitted to NICU Weight (g) Sex Living Outcome Pediatric Complications Fetus ID Race Codes Race Delivery Type 2381.35 8 F Full Term 2704 VAGINAL Jessa Calculation Initial Jessa Date Initial Exam Date Initial Exam Provider Initial Ultrasound Date Last Menstrual Period Date Ultra Sound Weeks Gestation 0 Eighteen To Twenty Week Jessa Update Ultra Sound Date Fundal Height At Umbil Quickening Date Ultra Sound Latest Weeks Gestation Final Jessa Confirmed By Final Jessa Confirmed Date Final Jessa Date Ultra Sound Latest Days Gestation 0 0 Menstrual History Last Menstrual Date Menses Monthly On Bcp Conception Prior Menses Frequency Hcg Plus Date Menarche Onset Age Delivery Information Delivery Date Delivery Type Labor Anesthesia Weeks Gestation Incision Type Labor Labor Length Hrs Delivered By Post Complications Tubal Sterilization Discharge Date Comments 3 39 Beth Discharge Information Feeding Method Contraceptive Method Maternal HG B and HCT Levels Ob Episode Information Episode Created Date Number of Fetuses Patient Bloodtype Patient rh Status Prepregnancy Weight lbs Domestic Partner Domestic Partner Phone Father Name Artificial Plastic Eye Maker Status 04/02/20 1 CLOSED Fetus Data First Name Last Name Admitted to NICU Weight (g) Sex Living Outcome Pediatric Complications Fetus ID Race Codes Race Delivery Type F Full Term 2703 Jessa Calculation Initial Jessa Date Initial Exam Date Initial Exam Provider Initial Ultrasound Date Last Menstrual Period Date Ultra Sound Weeks Gestation 0 Eighteen To Twenty Week Jessa Update Ultra Sound Date Fundal Height At Umbil Quickening Date Ultra Sound Latest Weeks Gestation Final Jessa Confirmed By Final Jessa Confirmed Date Final Jessa Date Ultra Sound Latest Days Gestation 0 0 Menstrual History Last Menstrual Date Menses Monthly On Bcp Conception Prior Menses Frequency Hcg Plus Date Menarche Onset Age Delivery Information Delivery Date Delivery Type Labor Anesthesia Weeks Gestation Incision Type Labor Labor Length Hrs Delivered By Post Complications Tubal Sterilization Discharge Date Comments 8 36 demise, bleeding emergency , Elliott Discharge Information Feeding Method Contraceptive Method Maternal HG B and HCT Levels Ob Episode Information Episode Created Date Number of Fetuses Patient Bloodtype Patient rh Status Prepregnancy Weight lbs Domestic Partner Domestic Partner Phone Father Name Artificial Plastic Eye Maker Status 04/02/20 23 1 CLOSED Fetus Data First Name Last Name Admitted to NICU Weight (g) Sex Living Outcome Pediatric Complications Fetus ID Race Codes Race Delivery Type 2381.35 8 F Full Term 2705 VAGINAL Jessa Calculation Initial Jessa Date Initial Exam Date Initial Exam Provider Initial Ultrasound Date Last Menstrual Period Date Ultra Sound Weeks Gestation 0 Eighteen To Twenty Week Jessa Update Ultra Sound Date Fundal Height At Umbil Quickening Date Ultra Sound Latest Weeks Gestation Final Jessa Confirmed By Final Jessa Confirmed Date Final Jessa Date Ultra Sound Latest Days Gestation 0 0 Menstrual History Last Menstrual Date Menses Monthly On Bcp Conception Prior Menses Frequency Hcg Plus Date Menarche Onset Age Delivery Information Delivery Date Delivery Type Labor Anesthesia Weeks Gestation Incision Type Labor Labor Length Hrs Delivered By Post Complications Tubal Sterilization Discharge Date Comments 7 39 Jolea Discharge Information Feeding Method Contraceptive Method Maternal HG B and HCT Levels
--- NOTE | 2025-05-31 05:01 | USR_ITS ---
PROCEDURE INFORMATION: Exam: US , Limited Exam date and time: 05/31/2025 5:12 AM Age: 35 years old Clinical indication: Lmp or gestational age (in weeks): 11w 2d by reported lmp; Antepartum complications; Prior surgery; Surgery date: 6+ months; Surgery type: Two prior c-sections; G6-p3-a2-l2 presenting with heavy vaginal bleeding and passing large clots. Patient states she did not know she was ; Additional info: Vaginal bleed LABS AND CLINICAL REPORTS: Choriogonadotropin in serum (Serum HCG): 3347 mIU/mL Last menstrual period start date: 03/13/2025 Gestational age (Established): 11 w 2 d Estimated due date (Established): 03/13/2026 TECHNIQUE: Imaging protocol: Real-time ultrasound of the maternal uterus with image documentation. Exam focused on the clinical indication. COMPARISON: US OB >= 14 weeks fetus [id number] 03/16/2021 4:34 PM FINDINGS: Gestation: No visible IUP. The endometrial canal is slightly expanded with heterogeneous debris likely representing blood clots. The findings are concerning for hemorrhage and missed AB. Correlate with serial quantitative beta HCG and short-term follow-up pelvic ultrasound. MATERNAL: Uterus: Uterus measures 13.44 cm x 7.03 cm x 6.45 cm. Right ovary/adnexa: Right ovary measures 3 cm x 2 cm x 2.4 cm. Right ovarian volume is 7.4 mL. No right adnexal mass identified. Left ovary/adnexa: Left ovary measures 3.6 cm x 2.2 cm x 2.2 cm. Left ovarian volume is 9 mL. No left adnexal mass identified US/US OB limited [id number] IMPRESSION: 1. No visible IUP. The endometrial canal is slightly expanded with heterogeneous debris likely representing blood clots raising the concern for hemorrhage and missed AB. 2. Recommend short-term follow-up pelvic ultrasound and correlation with serial quantitative beta HCG.
[2025-05-31 05:09] LABS: Hematocrit 33.8 % (36-47); Hemoglobin 11.30 g/dL (11.27-16.99); Mean Corpuscular HGB Conc 33.4 g/dL (30-55); Mean Corpuscular Hemoglobin 29.4 pg (27-33); Mean Corpuscular Volume 88.0 fl (85-98); Nucleated Red Blood Cells % 0 %; Platelet Count 320 10^3/cmm (157-399); Red Blood Count 3.84 10^6/uL (3.85-5.65); White Blood Count 14.16 10^3/uL (3.29-11.43)
[2025-05-31 05:15] LABS: Glucose Urine UA Negative (Normal); Nitrate Urine Negative (Negative); Specific Gravity, Urine 1.002 (1.005-1.030)
[2025-05-31 05:20] LABS: Add Urine Microscopic? YES
[2025-05-31 05:21] LABS: INR 0.96 (0.8-1.2); Prothrombin Time 13.40 SECONDS (12.1-14.9)
[2025-05-31 05:22] LABS: Partial Thromboplastin Time 30.2 SECONDS (23.9-36.7)
[2025-05-31 05:33] LABS: PCP Screen Urine Negative (Negative)
[2025-05-31 05:36] LABS: Alanine Aminotransferase 17 U/L (0-33); Albumin Level 3.9 g/dL (3.5-5.2); Alcohol Level 76 mg/dL (0-10); Alkaline Phosphatase 93 U/L (35-105); Anion Gap 16.4 (5-19); Aspartate Amino Transferase 25 U/L (0-32); Blood Urea Nitrogen 3 mg/dL (6-20); Calcium 8.9 mg/dL (8.5-10.5); Carbon Dioxide 21 mmol/L (22-29); Chloride 103 mmol/L (98-107); Globulin 2.6 g/dL (1.3-4.6); Glucose 116 mg/dL (65-115); Osmolality Calculated 282 mOsm/kg (285-295); Potassium 3.4 mmol/L (3.5-5.1); Sodium 137 mmol/L (136-145); Total Protein 6.5 g/dL (6.6-8.7)
--- NOTE | 2025-05-31 05:58 | W.ED.FEMALGU ---
Documented by User: Puneet Galo, 05/31/25 20:19 HPI - Female Genitourinary General: Chief complaint: Vaginal Bleeding Stated complaint: vaginal bleeding (unknown preg length) Time Seen by Provider: 05/31/25 04:49 History of Present Illness: Patient is a 35-year-old female who recently discovered she was . She reports that approximately 1.5-2 days ago, she developed a severe cough after attending a shower event, which was followed by the onset of vaginal bleeding. The bleeding has progressively worsened, accompanied by increasing abdominal pain. Patient reports passing several large clots. She has soaked approximately 7 pads in the last 24 hours. The pain is described as severe and located in the lower abdominal region. Patient believes she is having a miscarriage. She reports her last menstrual period was in March 2025, making her approximately 8 weeks . Patient states she previously visited an emergency room due to the bleeding, where they measured her hCG level. . She was referred to our facility for more comprehensive evaluation and management due to limited equipment at the previous facility. Date of Last Menstrual Period: 03/11/25 Related Data Home Medications ?Medication ?Instructions ?Recorded ?Confirmed buspirone 10 mg tablet 10 mg PO TID 05/31/25 05/31/25 sertraline 100 mg tablet 100 mg PO DAILY 05/31/25 05/31/25 Allergies Allergy/AdvReac Type Severity Reaction Status Date / Time No Known Allergies Allergy Verified 05/31/25 04:52 [facility] ED PFSH: Medical History (Updated 05/31/25 @ 09:33 by Sierar Vinson MD) SAB (spontaneous ) No pertinent past medical history Denies diabetes, asthma, hypertension, seizures, DVT/PE PMD: none Surgical History (Updated 05/31/25 @ 09:33 by Sierra Vinson MD) Status post delivery 2019--emergency delivery for placental abruption at about 7 months--the baby did not survive. This was done in [facility]. She does not know why this happened Social History Smoking and tobacco/nicotine status: current every day tobacco/nicotine user Female Reproductive History: Date of last menstrual period: 03/11/25 Physical Exam Const: COMMON NORMALS: no acute distress GENERAL APPEARANCE: cooperative; not ill appearing and not frail appearing HENMT: COMMON NORMALS: normocephalic, atraumatic and Normal external nose present HEAD & SCALP: normocephalic and atraumatic FACE & SINUS: normal facial exam and face symmetric NOSE: Normal external nose present Eye: COMMON NORMALS: Equal, round and reactive pupils present and EOMs intact bilaterally PUPIL: Yes Equal, round and reactive pupils present Neck/C-Spine: GENERAL: Yes trachea midline Chest: CHEST: Yes Symmetrical chest wall rise Resp: COMMON NORMALS: normal respiratory effort, No retractions, No use of accessory muscles and clear to auscultation bilaterally AUSCULTATION: clear to auscultation bilaterally Cardio: COMMON NORMALS: regular rate and regular rhythm RATE: regular rate RHYTHM: regular rhythm GI: COMMON NORMALS: Normal to inspection, nondistended, normoactive bowel sounds present OTHER: Gravid uterus with mild to moderate tenderness is noted Extremity: COMMON NORMALS: no pedal edema Neuro: MARLEY COMA SCALE: document GCS findings Hornbeck coma scale eye opening: Spontaneous Marley coma scale verbal response: Orientated Hornbeck coma scale motor response: Obey commands Hornbeck coma scale total score: 15 SENSORY EXAM: Yes extremities (intact) Psych: COMMON NORMALS: speech normal SPEECH: Yes normal speech Skin: COMMON NORMALS: no rashes or lesions noted GENERAL SKIN EXAM: no rashes or lesions noted Course Vital Signs: Vital signs: Vital Signs Temperature 97.9 F 05/31/25 04:44 Pulse Rate 91 05/31/25 09:44 Respiratory Rate 18 05/31/25 04:44 Blood Pressure 118/79 05/31/25 09:44 Pulse Oximetry 98 05/31/25 09:44 Oxygen Delivery Me thod Room Air 05/31/25 08:25 MDM - Female Medical Decision Making Hemoglobin is 11. White blood cell count is 14. Potassium is 3.4. Creatinine is 0.4. The patient is amphetamine positive. Alcohol level 76 urinalysis shows hematuria without evidence of infection Lab Data 05/31/25 04:55 05/31/25 04:55 Radiology Impressions Obstetrics Ultrasound 05/31/25 05:01 IMPRESSION: 1. No visible IUP. The endometrial canal is slightly expanded with heterogeneous debris likely representing blood clots raising the concern for hemorrhage and missed AB. 2. Recommend short-term follow-up pelvic ultrasound and correlation with serial quantitative beta HCG. Laboratory Results WBC 14.16 10^3/uL (3.29-11.43) H 05/31/25 04:55 RBC 3.84 10^6/uL (3.85-5.65) L 05/31/25 04:55 Hgb 11.30 g/dL (11.27-16.99) 05/31/25 04:55 Hct 33.8 % (36-47) L 05/31/25 04:55 MCV 88.0 fl (85-98) 05/31/25 04:55 MCH 29.4 pg (27-33) 05/31/25 04:55 MCHC 33.4 g/dL (30-55) 05/31/25 04:55 RDW 15.4 % (12.1-15.1) H 05/31/25 04:55 Plt Count 320 10^3/cmm (157-399) 05/31/25 04:55 MPV 10.4 fL (7.4-10.4) 05/31/25 04:55 Neut % (Auto) 70.1 % 05/31/25 04:55 Lymph % (Auto) 23.2 % 05/31/25 04:55 [place] % (Auto) 4.4 % 05/31/25 04:55 Eos % (Auto) 1.5 % 05/31/25 04:55 Baso % (Auto) 0.4 % 05/31/25 04:55 Neut # (Auto) 9.93 10^3/uL (1.8-7.7) H 05/31/25 04:55 Lymph # (Auto) 3.3 10^3/uL (0.8-4.8) 05/31/25 04:55 [place] # (Auto) 0.6 10^3/uL (0.2-0.9) 05/31/25 04:55 Eos # (Auto) 0.2 10^3/uL (0.0-0.8) 05/31/25 04:55 Baso # (Auto) 0.1 10^3/uL (0.0-0.1) 05/31/25 04:55 Nucleated RBC % (auto) 0 % 05/31/25 04:55 Nucleated RBCs # 0.0 /100WBC 05/31/25 04:55 PT 13.40 SECONDS (12.1-14.9) 05/31/25 04:55 INR 0.96 (0.8-1.2) 05/31/25 04:55 APTT 30.2 SECONDS (23.9-36.7) 05/31/25 04:55 Sodium 137 mmol/L (136-145) 05/31/25 04:55 Potassium 3.4 mmol/L (3.5-5.1) L 05/31/25 04:55 Chloride 103 mmol/L (98-107) 05/31/25 04:55 Carbon Dioxide 21 mmol/L (22-29) L 05/31/25 04:55 Anion Gap 16.4 (5-19) 05/31/25 04:55 BUN 3 mg/dL (6-20) L 05/31/25 04:55 Creatinine 0.4 mg/dL (0.5-0.9) L 05/31/25 04:55 GFR Calculation 182.7 mL/min (90-130) H 05/31/25 04:55 Glucose 116 mg/dL (65-115) H 05/31/25 04:55 Calculated Osmolality 282 mOsm/kg (285-295) L 05/31/25 04:55 Calcium 8.9 mg/dL (8.5-10.5) 05/31/25 04:55 Total Bilirubin 0.2 mg/dL (0.15-1.2) 05/31/25 04:55 AST 25 U/L (0-32) 05/31/25 04:55 ALT 17 U/L (0-33) 05/31/25 04:55 Alkaline Phosphatase 93 U/L (35-105) 05/31/25 04:55 Total Protein 6.5 g/dL (6.6-8.7) L 05/31/25 04:55 Albumin 3.9 g/dL (3.5-5.2) 05/31/25 04:55 Globulin 2.6 g/dL (1.3-4.6) 05/31/25 04:55 Ser , Semi-Qnt 3347.00 mIU/mL 05/31/25 04:55 Urine Color Yellow (Yellow) 05/31/25 04:55 Urine Appearance Clear (CLEAR) 05/31/25 04:55 Urine pH 7.0 (5-7) 05/31/25 04:55 Ur Specific [place] 1.002 (1.005-1.030) L 05/31/25 04:55 Urine Protein Negative (Negative) 05/31/25 04:55 Urine Glucose (UA) Negative (Normal) 05/31/25 04:55 Urine Ketones Negative (Negative) 05/31/25 04:55 Urine Blood 3+ (Negative) A 05/31/25 04:55 Urine Nitrate Negative (Negative) 05/31/25 04:55 Urine Bilirubin Negative (Negative) 05/31/25 04:55 Urine Urobilinogen 0.2 mg/dL (Negative) 05/31/25 04:55 Ur Leukocyte Esterase Negative (Negative) 05/31/25 04:55 Urine RBC 21-50 /hpf (0-2) H 05/31/25 04:55 Urine WBC 0-5 /hpf (0-5) 05/31/25 04:55 Ur Squamous Epith Cells 0-5 /hpf (0-5) 05/31/25 04:55 Amorphous Sediment Not Reportable 05/31/25 04:55 Urine Bacteria None seen /hpf (NONE) 05/31/25 04:55 Hyaline Casts 0-4 /lpf H 05/31/25 04:55 Urine Opiates Screen Negative ng/mL (Negative) 05/31/25 04:55 Ur Barbiturates Screen Negative ng/mL (Negative) 05/31/25 04:55 Ur Phencyclidine Scrn Negative ng/mL (Negative) 05/31/25 04:55 Ur Amphetamines Screen Positive ng/mL (Negative) H 05/31/25 04:55 U Benzodiazepines Scrn Negative ng/mL (Negative) 05/31/25 04:55 Urine Cocaine Screen Negative ng/mL (Negative) 05/31/25 04:55 U Marijuana (THC) Screen Negative ng/mL (Negative) 05/31/25 04:55 Ethyl Alcohol 76 mg/dL (0-10) H 05/31/25 04:55 Blood Type O Positive 05/31/25 06:23 Rho(D) Type Rh positive 05/31/25 06:23 Antibody Screen Negative 05/31/25 06:23 Discharge Plan Discharge Patient Disposition: Home Clinical Impression: SAB (spontaneous ), Insufficient care, Previous delivery affecting , antepartum Condition: Stable Prescriptions: No Action sertraline 100 mg tablet 100 mg PO DAILY buspirone 10 mg tablet 10 mg PO TID Discharge Orders: Discharge ED (Routine); Ordered 05/31/25 Ordered By: Sierra Vinson Referrals: Sondra Lyles MD [Physician, TAIL BOARD WORKER] Referral Note: Please follow-up with Dr. Lyles as instructed. Call for an appointment for tubal ligation Discharge Diet: As Directed Discharge Activity: Increase activity as tolerated Patient Instructions: Opioid Safety, Pain Management, Patient Portal & Sujatha Instructions Activity Restrictions/Additional Instructions: Thank you for choosing [facility] for your healthcare needs today. You have been screened and evaluated and felt safe for discharge. Health conditions do change or evolve sometimes and as such it is important that you follow up with your Primary Doctor to be re checked, 3-5 days is a general good time frame for follow up. You are always welcome to return to the ED for re assessment if your symptoms are worsening or you have new concerns. (Please note that included in your discharge packet is information concerning opioid safety and pain management. This information is given to all patients who are discharged from the ER regardless of their discharge diagnosis or the medicines they usually take or are prescribed.) Print Language: Sinhala Coding Level of Care Code ED Cage Maker Machine for Chg Fwd Documented by User: Sierra Vinson MD 05/31/25 09:35 HPI - Female Genitourinary General: Chief complaint: Vaginal Bleeding Stated complaint: vaginal bleeding (unknown preg length) Time Seen by Provider: 05/31/25 04:49 Related Data Home Medications ?Medication ?Instructions ?Recorded ?Confirmed buspirone 10 mg tablet 10 mg PO TID 05/31/25 05/31/25 sertraline 100 mg tablet 100 mg PO DAILY 05/31/25 05/31/25 Allergies Allergy/AdvReac Type Severity Reaction Status Date / Time No Known Allergies Allergy Verified 05/31/25 04:52 [facility] ED PFSH: Medical History (Updated 05/31/25 @ 09:33 by Sierra Vinson MD) SAB (spontaneous ) No pertinent past medical history Denies diabetes, asthma, hypertension, seizures, DVT/PE PMD: none Surgical History (Updated 05/31/25 @ 09:33 by Sierra Vinson MD) Status post delivery 2019--emergency delivery for placental abruption at about 7 months--the baby did not survive. This was done in [facility]. She does not know why this happened Social History Smoking and tobacco/nicotine status: current every day tobacco/nicotine user Physical Exam Neuro: MARLEY COMA SCALE: document GCS findings Marley coma scale total score: 15 Course Vital Signs: Vital signs: Vital Signs Temperature 97.9 F 05/31/25 04:44 Pulse Rate 91 05/31/25 09:44 Respiratory Rate 18 05/31/25 04:44 Blood Pressure 118/79 05/31/25 09:44 Pulse Oximetry 98 05/31/25 09:44 Oxygen Delivery Me thod Room Air 05/31/25 08:25 MDM - Female Medical Decision Making Hemoglobin is 11. White blood cell count is 14. Potassium is 3.4. Creatinine is 0.4. The patient is amphetamine positive. Alcohol level 76 urinalysis shows hematuria without evidence of infection Patient care transitioned me at shift change. Awaiting ultrasound read and gynecology consultation. Ultrasound: No visible IUP. Canal is slightly expanded with heterogenous debris. Likely incomplete . Consultation: I spoke with Dr. Lyles who evaluated the patient and delivered contents in the emergency room. Pitocin was given and patient has been discharged. Lab Data 05/31/25 04:55 05/31/25 04:55 Radiology Impressions Obstetrics Ultrasound 05/31/25 05:01 IMPRESSION: 1. No visible IUP. The endometrial canal is slightly expanded with heterogeneous debris likely representing blood clots raising the concern for hemorrhage and missed AB. 2. Recommend short-term follow-up pelvic ultrasound and correlation with serial quantitative beta HCG. Laboratory Results WBC 14.16 10^3/uL (3.29-11.43) H 05/31/25 04:55 RBC 3.84 10^6/uL (3.85-5.65) L 05/31/25 04:55 Hgb 11.30 g/dL (11.27-16.99) 05/31/25 04:55 Hct 33.8 % (36-47) L 05/31/25 04:55 MCV 88.0 fl (85-98) 05/31/25 04:55 MCH 29.4 pg (27-33) 05/31/25 04:55 MCHC 33.4 g/dL (30-55) 05/31/25 04:55 RDW 15.4 % (12.1-15.1) H 05/31/25 04:55 Plt Count 320 10^3/cmm (157-399) 05/31/25 04:55 MPV 10.4 fL (7.4-10.4) 05/31/25 04:55 Neut % (Auto) 70.1 % 05/31/25 04:55 Lymph % (Auto) 23.2 % 05/31/25 04:55 [place] % (Auto) 4.4 % 05/31/25 04:55 Eos % (Auto) 1.5 % 05/31/25 04:55 Baso % (Auto) 0.4 % 05/31/25 04:55 Neut # (Auto) 9.93 10^3/uL (1.8-7.7) H 05/31/25 04:55 Lymph # (Auto) 3.3 10^3/uL (0.8-4.8) 05/31/25 04:55 [place] # (Auto) 0.6 10^3/uL (0.2-0.9) 05/31/25 04:55 Eos # (Auto) 0.2 10^3/uL (0.0-0.8) 05/31/25 04:55 Baso # (Auto) 0.1 10^3/uL (0.0-0.1) 05/31/25 04:55 Nucleated RBC % (auto) 0 % 05/31/25 04:55 Nucleated RBCs # 0.0 /100WBC 05/31/25 04:55 PT 13.40 SECONDS (12.1-14.9) 05/31/25 04:55 INR 0.96 (0.8-1.2) 05/31/25 04:55 APTT 30.2 SECONDS (23.9-36.7) 05/31/25 04:55 Sodium 137 mmol/L (136-145) 05/31/25 04:55 Potassium 3.4 mmol/L (3.5-5.1) L 05/31/25 04:55 Chloride 103 mmol/L (98-107) 05/31/25 04:55 Carbon Dioxide 21 mmol/L (22-29) L 05/31/25 04:55 Anion Gap 16.4 (5-19) 05/31/25 04:55 BUN 3 mg/dL (6-20) L 05/31/25 04:55 Creatinine 0.4 mg/dL (0.5-0.9) L 05/31/25 04:55 GFR Calculation 182.7 mL/min (90-130) H 05/31/25 04:55 Glucose 116 mg/dL (65-115) H 05/31/25 04:55 Calculated Osmolality 282 mOsm/kg (285-295) L 05/31/25 04:55 Calcium 8.9 mg/dL (8.5-10.5) 05/31/25 04:55 Total Bilirubin 0.2 mg/dL (0.15-1.2) 05/31/25 04:55 AST 25 U/L (0-32) 05/31/25 04:55 ALT 17 U/L (0-33) 05/31/25 04:55 Alkaline Phosphatase 93 U/L (35-105) 05/31/25 04:55 Total Protein 6.5 g/dL (6.6-8.7) L 05/31/25 04:55 Albumin 3.9 g/dL (3.5-5.2) 05/31/25 04:55 Globulin 2.6 g/dL (1.3-4.6) 05/31/25 04:55 Ser , Semi-Qnt 3347.00 mIU/mL 05/31/25 04:55 Urine Color Yellow (Yellow) 05/31/25 04:55 Urine Appearance Clear (CLEAR) 05/31/25 04:55 Urine pH 7.0 (5-7) 05/31/25 04:55 Ur Specific [place] 1.002 (1.005-1.030) L 05/31/25 04:55 Urine Protein Negative (Negative) 05/31/25 04:55 Urine Glucose (UA) Negative (Normal) 05/31/25 04:55 Urine Ketones Negative (Negative) 05/31/25 04:55 Urine Blood 3+ (Negative) A 05/31/25 04:55 Urine Nitrate Negative (Negative) 05/31/25 04:55 Urine Bilirubin Negative (Negative) 05/31/25 04:55 Urine Urobilinogen 0.2 mg/dL (Negative) 05/31/25 04:55 Ur Leukocyte Esterase Negative (Negative) 05/31/25 04:55 Urine RBC 21-50 /hpf (0-2) H 05/31/25 04:55 Urine WBC 0-5 /hpf (0-5) 05/31/25 04:55 Ur Squamous Epith Cells 0-5 /hpf (0-5) 05/31/25 04:55 Amorphous Sediment Not Reportable 05/31/25 04:55 Urine Bacteria None seen /hpf (NONE) 05/31/25 04:55 Hyaline Casts 0-4 /lpf H 05/31/25 04:55 Urine Opiates Screen Negative ng/mL (Negative) 05/31/25 04:55 Ur Barbiturates Screen Negative ng/mL (Negative) 05/31/25 04:55 Ur Phencyclidine Scrn Negative ng/mL (Negative) 05/31/25 04:55 Ur Amphetamines Screen Positive ng/mL (Negative) H 05/31/25 04:55 U Benzodiazepines Scrn Negative ng/mL (Negative) 05/31/25 04:55 Urine Cocaine Screen Negative ng/mL (Negative) 05/31/25 04:55 U Marijuana (THC) Screen Negative ng/mL (Negative) 05/31/25 04:55 Ethyl Alcohol 76 mg/dL (0-10) H 05/31/25 04:55 Blood Type O Positive 05/31/25 06:23 Rho(D) Type Rh positive 05/31/25 06:23 Antibody Screen Negative 05/31/25 06:23 All radiology interpretation(s) finalized by discharge Discharge Plan Discharge Patient Disposition: Home Clinical Impression: SAB (spontaneous ), Insufficient care, Previous delivery affecting , antepartum Condition: Stable Prescriptions: No Action sertraline 100 mg tablet 100 mg PO DAILY buspirone 10 mg tablet 10 mg PO TID Discharge Orders: Discharge ED (Routine); Ordered 05/31/25 Ordered By: Sierra Vinson Referrals: Sondra Lyles MD [Physician, TAIL BOARD WORKER] Referral Note: Please follow-up with Dr. Lyles as instructed. Call for an appointment for tubal ligation Discharge Diet: As Directed Discharge Activity: Increase activity as tolerated Patient Instructions: Opioid Safety, Pain Management, Patient Portal & Sujatha Instructions Activity Restrictions/Additional Instructions: Thank you for choosing [facility] for your healthcare needs today. You have been screened and evaluated and felt safe for discharge. Health conditions do change or evolve sometimes and as such it is important that you follow up with your Primary Doctor to be re checked, 3-5 days is a general good time frame for follow up. You are always welcome to return to the ED for re assessment if your symptoms are worsening or you have new concerns. (Please note that included in your discharge packet is information concerning opioid safety and pain management. This information is given to all patients who are discharged from the ER regardless of their discharge diagnosis or the medicines they usually take or are prescribed.) Print Language: Sinhala Coding Level of Care Code ED Cage Maker Machine for Yue Lozada
--- NOTE | 2025-05-31 09:18 | PM.OBGYCN ---
Providers/Reason for Consult Consulting Physican/Specialty*: ER Reason for Consult*: miscarriage incomplete [facility] [employer] [facility]ER Consult HPI History of Present Illness Sara Yang is a 35 year old female multigravid female who tested positive for today and presented with heavy vaginal bleeding. + meth, says last use 2 days ago. Present Details Date of Last Menstrual Period: 03/11/25 Review of Systems Narrative: Pertinent positives listed in HPI: Const: Denies: fever(s) or chills Card: Denies: chest pain, palpitations or syncope Resp: Denies: SOB, cough GI: Denies: abdominal pain, nausea or vomiting : Denies: flank pain, dysuria or urinary frequency Musc: Denies: back pain or extremity swelling Skin/Breast: Denies: rash, pruritus or breast pain Neuro: Denies: headache(s) or dizziness Psych: Denies: depression or mood swings Endo: Denies: polyuria, cold or heat intolerance Twin/Lymph: Denies: easy bruising or easy bleeding Medications/Allergies Home Medications ?Medication ?Instructions ?Recorded ?Confirmed ?Last Taken ?Type buspirone 10 mg tablet 10 mg PO TID 05/31/25 05/31/25 Unknown History sertraline 100 mg tablet 100 mg PO DAILY 05/31/25 05/31/25 Unknown History Allergies Allergy/AdvReac Type Severity Reaction Status Date / Time No Known Allergies Allergy Verified 05/31/25 04:52 PFSH [facility] [employer] [facility]WYER PFSH: Medical History (Updated 05/31/25 @ 09:21 by Sondra Lyles MD) SAB (spontaneous ) No pertinent past medical history Denies diabetes, asthma, hypertension, seizures, DVT/PE PMD: none Surgical History Status post delivery 2019--emergency delivery for placental abruption at about 7 months--the baby did not survive. This was done in [facility]. She does not know why this happened Social History Smoking and tobacco/nicotine status: current every day tobacco/nicotine user Vitals/I&O/Wt Last Vital Signs Temp 97.9 F 05/31/25 04:44 Pulse 95 05/31/25 08:25 Resp 18 05/31/25 04:44 BP 127/85 05/31/25 08:25 Pulse Ox 98 05/31/25 08:25 O2 Del Method Room Air 05/31/25 08:25 Weight last 48 hrs Weight 143 lb Physical Exam Narrative: Appearance: grossly normal Attitude: calm and engaged, appropriate eye contact Const: no acute distress, oriented x3 cooperative Chest: Symmetrical chest wall rise Resp: normal respiratory effort, clear to auscultation bilaterally Cardio: regular rate and regular rhythm GI: Soft to palpation, Non Tender, gravid, no Guarding, no masses : No Uterine tenderness, cervix not seen due to protruding POC, vagina no masses, urethra normal, got tubing pitocin, and with those in place she was then able to deliver a full sac with clotted blood about 12 cm long Extremity: normal inspection, negative for no pedal edema Neuro: oriented x3 and moves all extremities, speech normal Psych: mental status grossly normal, and Normal thought process present Skin: no rashes or lesions noted Data 05/31/25 04:55 05/31/25 04:55 A&P Assessment and plan 1. SAB (spontaneous ): Checked by bedside US and uterus looks good with good EMS. Finish 15 units pitocin then DC home. FU with me for she expressed desire for permanent sterilization. Pelvic rest x 2 weeks. PDMP PDMP Reviewed: Not Reviewed Coding Level of Care Code Acute Code for Chg Fwd Diagnoses SAB (spontaneous ) O03.9
[2025-05-31] MEDS: oxytocin 30 UNIT/500 ML BAG (09:21)
--- NOTE | 2025-05-31 09:44 | PC.NURSE ---
DR. GARY WANTED PT TO RECEIVE 300 MLS OF PIT, PT DID NOT WANT TO WAIT. PT RECEIVED 200 MLS OF PIT BEFORE D/C.
== END 2025-05-31 09:45 | disposition home or self-care (01) ==
PROVIDERS: Emergency Medicine; Emergency Provider Emergency Medicine
DX: O03.9 Complete or unspecified spontaneous abortion without complication (principal); Z72.0 Tobacco use
CPT/HCPCS: 36415; 76815; 80053; 80306; 80307; 81001; 84702; 85025; 85610; 85730; 86850; 86900; 87077; 87086; 87186; 88305; 96360; 96361; 99284; J2590; J7030